=== PATIENT | female | born 1960 | race Caucasian/White ===

== ENCOUNTER 2017-10-19 11:14 | Emergency (ER) | payer BC ==
[2017-10-19] MEDS ORDERED: PREDNISONE 20 MG TABLET PO ONE (12:24)
[2017-10-19] MEDS ORDERED: OXYCODONE-ACETAMINOPHEN 5-325 MG TABLET PO ONE (12:24)
--- NOTE | 2017-10-19 12:25 | ER Document Report ---
HPI - HPI Patient complains to provider of: Low back pain Onset: Other - 3 days Onset/Duration: Persistent Quality of pain: Achy Pain Level: 5 Context: Patient presents complaining of low back pain for the past 3 days. Patient states back pain radiates to the right hip. Patient does have a previous history of chronic low back pain off and on. Patient states pain is in typical location where she has had flareups in the past. Patient denies any new injury. Patient denies any fever. Patient denies any urinary retention or incontinence. Patient denies any history of IV drug use. Associated Symptoms: Other - Low back pain. denies: Fever, Headache Exacerbated by: Movement, Walking Relieved by: Denies Similar symptoms previously: Yes Recently seen / treated by doctor: No - ROS ROS below otherwise negative: Yes Systems Reviewed and Negative: Yes All other systems reviewed and negative - CONSTITUTIONAL Constitutional: DENIES: Fever, Chills - NEURO Neurology: DENIES: Headache, Weakness - URINARY Urinary: DENIES: Dysuria, Urgency, Frequency - MUSCULOSKELETAL Musculoskeletal: REPORTS: Back Pain - DERM Skin Color: Normal Skin Problems: None Past Medical History - General Information source: Patient - Social History Smoking Status: Never Smoker Frequency of alcohol use: None Drug Abuse: None Family History: Reviewed & Not Pertinent Patient has suicidal ideation: No Patient has homicidal ideation: No - Past Medical History Cardiac Medical History: Reports: Hx Hypertension Renal/ Medical History: Denies: Hx Peritoneal Dialysis Musculoskeltal Medical History: Reports Other - Low back pain Past Surgical History: Reports: Hx Hysterectomy, Hx Oral Surgery - jaw, Hx Orthopedic Surgery - back and foot Vertical Provider Document - CONSTITUTIONAL Agree With Documented VS: Yes Exam Limitations: No Limitations General Appearance: WD/WN, No Apparent Distress Notes: PHYSICAL EXAMINATION: GENERAL: Well-appearing, well-nourished and in no acute distress. HEAD: Atraumatic, normocephalic. EYES: sclera clear, anicteric, conjunctiva are normal. ENT: nares patent, Moist mucous membranes. NECK: Normal range of motion, supple no lymphadenopathy LUNGS: respirations unlabored HEART: Regular rate and rhythm without murmurs EXTREMITIES: Normal range of motion, no pitting or edema. No cyanosis. Gait normal, pt ambulates without difficulty BACK: Right lower lumbar paraspinal tenderness, right SI joint tenderness, no deformities or step-offs. No CVA tenderness. NEUROLOGICAL: Cranial nerves grossly intact. Normal speech, normal gait. No saddle anesthesia. Negative straight leg test bilaterally PSYCH: Normal mood, normal affect. SKIN: Warm, Dry, normal turgor, no rashes or lesions noted. - INFECTION CONTROL TRAVEL OUTSIDE OF THE [place] IN LAST 30 DAYS: No - RESPIRATORY O2 Sat by Pulse Oximetry: 97 Course - Re-evaluation Re-evalutation: 10/19/17 12:24 The patient presents with low back pain without signs of spinal cord compression , cauda equina syndrome, infection, aneurysm, or other serious etiology. The patient is neurologically intact. Given the extremely risk of these diagnoses further testing and evaluation for these possibilities does not appear to be indicated at this time. Patient has been instructed to return if the symptoms worsen or change in any way. 10/19/17 12:24 The patient has been informed that they may have pre-hypertension or hypertension based on a blood pressure reading in the emergency department. I recommend that patient call the primary care provider listed on their discharge instructions or a physician of their choice by this week to arrange follow-up for further evaluation of possible pre-hypertension or hypertension. - Vital Signs Vital signs: Temp Pulse Resp BP Pulse Ox 97.9 F 70 22 H 144/70 H 97 10/19/17 11:21 10/19/17 11:21 10/19/17 11:21 10/19/17 11:21 10/19/17 11:21 Discharge - Discharge Clinical Impression: Elevated blood pressure reading Low back pain Qualifiers: Chronicity: chronic Back pain laterality: right Sciatica presence: with sciatica Sciatica laterality: sciatica of right side Qualified Code(s): M54.41 - Lumbago with sciatica, right side Condition: Stable Disposition: HOME, SELF-CARE Instructions: Ice Packs ([facility]), Low Back Pain ([facility]), Oral Narcotic Medication ( [facility]), Sciatica ([facility]), Warm Packs ([facility]) Additional Instructions: Return immediately for any new or worsening symptoms Followup with your primary care provider, call tomorrow to make a followup appointment Prescriptions: Oxycodone HCl/Acetaminophen [Percocet 5-325 mg Tablet] 1 tab PO ASDIR PRN #15 tablet PRN Reason: Prednisone [Deltasone 20 mg Tablet] 3 tab PO DAILY 4 Days tablet Forms: Elevated Blood Pressure Referrals: [facility] [Provider Group] - Follow up as needed
[2017-10-19 13:15] VITALS: BP 112/56
== END 2017-10-19 13:02 | disposition home or self-care (01) ==
LOC: ER 11:14
DX: M54.41 Lumbago with sciatica, right side (principal); R03.0 Elevated blood-pressure reading, without diagnosis of hypertension; M25.551 Pain in right hip; G89.29 Other chronic pain
CPT/HCPCS: 99283; J7512